=== PATIENT | male | born 1950 | race Caucasian/White ===

== ENCOUNTER 2016-11-14 08:45 | Inpatient (IN) | payer MEDICARE ==
--- OUTSIDE RECORDS SUMMARY | 2016-11-21 05:28 | XMS | Clinical Summary ---
:1950 Author Organization [facility] Address [address] [place] [address] Phone Care Team Providers Name Role Phone , Primary Care Provider Unavailable Allergies Not on File Current Medications Not on file Active Problems Not on file Social History Tobacco Use Types Packs/Day Years Used Date Never Assessed Sex Assigned at Date Recorded Not on file Last Filed Vital Signs Not on file Plan of Treatment Not on file Results Not on filefrom Last 3 Months
[2016-11-21] MEDS ORDERED: Vancomycin HCl 1.5 GM in Sodium Chloride 0.9% 250 ML 300 ML IVPB SCH (06:00)
[2016-11-21] MEDS ORDERED: Ondansetron HCl/PF 4 MG/2 ML Vial IVP PRN ×3 (06:57→10:31)
[2016-11-21] MEDS ORDERED: HYDROcodone/Acetaminophen 10/325 mg Tablet PO PRN ×3 (06:57→08:18)
[2016-11-21] MEDS ORDERED: COLCHICINE 0.6 MG PO PRN (06:57)
[2016-11-21] MEDS ORDERED: Fentanyl 100 MCG/2 ML VIAL SLOW IVP PRN (06:57)
[2016-11-21] MEDS ORDERED: Acetaminophen 325 MG TAB PO PRN (06:57)
[2016-11-21] MEDS ORDERED: diphenhydrAMINE HCl 25 MG CAP PO PRN (06:57)
[2016-11-21] MEDS ORDERED: Polyethylene Glycol 3350 17 GM Packet PO PRN (06:57)
[2016-11-21] MEDS ORDERED: traMADol HCl 50 MG TAB PO PRN ×2 (06:57→08:18)
[2016-11-21] MEDS ORDERED: Zolpidem Tartrate 5 MG TAB PO PRN ×2 (06:57→08:18)
[2016-11-21] MEDS ORDERED: Promethazine HCl 25 MG/ML VIAL IM PRN ×3 (06:57→10:31)
[2016-11-21] MEDS ORDERED: Midazolam HCl 2 mg/2 ml Vial ONE (07:11)
[2016-11-21] MEDS ORDERED: Colchicine 0.6 MG TAB PO PRN (07:44)
[2016-11-21] MEDS ORDERED: Bupivacaine HCl 0.5%/Epinephrine 1:200,000/PF 30 ml Vial ONE (08:07)
[2016-11-21] MEDS ORDERED: Ropivacaine 0.2% 550 ML 550 ML NERVE BLCK SCH (08:18)
[2016-11-21] MEDS ORDERED: Fentanyl 100 MCG/2 ML VIAL IV PRN (08:19)
[2016-11-21] MEDS ORDERED: Dexamethasone 20 MG/5 ML VIAL ONE (09:02)
[2016-11-21] MEDS ORDERED: Ondansetron HCl/PF 4 MG/2 ML Vial ONE (09:02)
[2016-11-21] MEDS ORDERED: Propofol 200 MG/20 ML VIAL ONE (09:02)
[2016-11-21] MEDS ORDERED: Sodium Chloride 0.9% 100 ML ONE (10:16)
[2016-11-21] MEDS ORDERED: Promethazine HCl 25 MG/ML VIAL SLOW IVP PRN (10:31)
[2016-11-21] MEDS ORDERED: Ketorolac Tromethamine 30 MG/ML VIAL ONE (10:38)
[2016-11-21] MEDS ORDERED: Fentanyl 100 MCG/2 ML VIAL ONE ×2 (10:38→11:02)
[2016-11-21] MEDS: Ferrous Gluconate 324 MG TAB PO SCH ×2 (11:11→20:38)
[2016-11-21] MEDS: Aspirin 325 MG TAB PO SCH ×2 (11:11→20:38)
[2016-11-21] MEDS: Multivitamin W/ Minerals 1 TAB PO SCH (11:11)
[2016-11-21] MEDS: Senokot S 8.6-50 MG TAB PO SCH ×2 (11:12→20:38)
--- NOTE | 2016-11-21 12:28 | RAD ---
TWO VIEWS OF THE LEFT KNEE: HISTORY: Left knee arthroplasty. COMPARISON: None. FINDINGS: Two views of the left knee show the patient to be status post left knee arthroplasty without perihar dware lucency or fracture. Air in the soft tissues is from recent surgery. IMPRESSION: Status post left knee arthroplasty without evidence of complication. POS: [facility]
--- NOTE | 2016-11-21 13:31 | OP ---
DATE OF PROCEDURE: 11/21/2016 PREOPERATIVE DIAGNOSIS: Degenerative joint disease, left knee. POSTOPERATIVE DIAGNOSIS: Degenerative joint disease, left knee. PROCEDURE: Left total knee arthroplasty using [place] [employer] 5 femur, 5 tibia, 9 mm CS X3 polyet hylene and A35 patella. NON PROFIT FINANCIAL CONTROLLER: Clive Purcell PA-C SURGEON: Enoch Skaggs M.D. PROCEDURE IN DETAIL: After informed consent was obtained in the preoperative holding area. The pat ient was taken to the operative suite where general anesthesia was induced. Once adequate level of general anesthesia was obtained, the patient was positioned and a well-padded tourniquet was placed around the left proximal thigh. The left lower extremity was then prepped and draped in the usual s terile fashion. Prior to exsanguination, a time out was called and all members of the surgical team agreed upon site, surgeon, and patient. The extremity was then exsanguinated and the tourniquet wa s raised. A midline longitudinal incision was then made directly over the patella extending two fin gerbreadths above the superior pole of the patella and two fingerbreadths inferior to the inferior p atellar pole of the patella. Deeper subcutaneous layers were dissected sharply and local bleeding w as controlled with Bovie electrocautery. A quad tendon longitudinal split was then made sharply and a median parapatellar arthrotomy was carried out both sharp and with Bovie electrocautery, carried down to one fingerbreadth medial to the tibial tubercle. The knee was then placed into flexion and the patella was everted nicely, and a copious fat pad ectomy was performed allowing for greater expo sure of the tibia. The computer-assisted distal femoral fiducial was then placed and pinned firmly, and the distal femoral cutting guide was pinned firmly into place. The oscillating saw was then us ed to remove the appropriate amount of bone. The 4-in-1 cutting block was then placed on the distal femur and the oscillating saw was used to remove the appropriate amount of bone off of the anterior , posterior, and chamfer cuts. After completion of bone cuts, the anterior cruciate ligament was re sected sharply and the posterior cruciate ligament retractor was placed and the tibia was subluxed f or better exposure. Partial meniscectomies were carried out, and the tibial computer-assisted fiduc ial was pinned, and the cutting guide was placed. Oscillating saw was then used to remove the bone with Hohmann retractors used to take care and protect the collateral ligaments. After the tibial re section was performed, a laminar block hacker was placed in between the freshened bone cuts. The knee p laced at 90 degrees and further bilateral meniscectomies were carried out, and the curved osteotome and curettage was used to remove any excess bone spurs in the posterior compartment. Exparel was th en injected into the posterior capsule, elizabeth-articular synovia, pre-patella synovia, and musculature surrounding the capsule. The trial femoral component, tibial baseplate were placed with the approp riate polyethylene trial insert with an appropriate polyethylene spacer and patellar button. The kn ee was taken through full range of motion with flexion and extension from 0-90 degrees and patellar broach squarely in the trochlea without any squinting or subluxation noted. The knee was also stabl e to varus and valgus stressing at 0, 15, 45, and 90 degrees of flexion. The drawer was negative. A ll trial components were then removed and the keel punch was used to provide the appropriate defect in the tibia with a mallet. The freshened bone cuts were copiously irrigated with pulsatile lavage of about 1-1/2 liters to remove all excess debris. The freshened bone cuts were then dried and with suction and lap sponge. The knee was placed in flexion and retractors were placed to provide acces s to all bone cuts. Tobramycin impregnated methyl methacrylate cement was then placed on the freshe ginna bone cuts and implants which were malleted firmly into place. Curettage and [place] elevators wer e used to remove any excess bone cement. The knee was placed into full extension and the patellar b utton was placed under compression, and the cement was allowed to cure. Once completed, the compone nts were again taken through full range of motion and copious irrigation of the knee was carried out with another liter of normal saline. All components were inspected fully with full range of motion and varus and valgus stressing. There was no laxity noted and full extension was observed clinicall y. Primary closure was accomplished with #2 interrupted Vicryl stitch of the arthrotomy defect. Th is was oversewn with a #2 running Quill barbed stitch. The gravitational platelet system was then i njected into the arthrotomy prior to closure. The subcutaneous layer was then closed with a running 0 barbed Monocryl stitch and skin closure accomplished with a running subcuticular 3-0 Monocryl bar bed Quill stitch and augmented with cement on the skin. Tourniquet was lowered. Good spontaneous r eturn of distal pulses was noted clinically and a sterile dressing was applied to the incision. The procedure was terminated without any complications. The patient was awakened in the operative suit e and the tourniquet was removed, and the patient was taken to the recovery room in stable condition . TOURNIQUET TIME: 49 minutes.
[2016-11-21] MEDS: BENAZEPRIL PO SCH (13:58)
[2016-11-21] MEDS: Furosemide 40 MG TAB PO SCH (13:58)
[2016-11-21] MEDS: AMLODIPINE BESYLATE PO SCH (13:58)
[2016-11-21] MEDS ORDERED: Ketorolac Tromethamine 30 MG/ML VIAL IM SCH (14:00)
--- NOTE | 2016-11-21 14:40 | PDOC.PN ---
- Subjective Encounter Start Date: 11/21/16 Encounter Start Time: 14:38 Pt seen for management of medical comorbidities, including hypertension. Denies chest pain, shortness of breath, fevers or chills. No nausea or vomiting. - Objective MAR Reviewed: Yes Vital Signs & Weight: Vital Signs (12 hours) Temp Pulse Resp BP Pulse Ox 11/21/16 11:35 97.3 F L 73 18 146/83 H 97 Weight Weight 217 lb Phys Exam - Physical Examination Constitutional: NAD HEENT: moist MMs, oral pharynx no lesions Neck: supple, full ROM Respiratory: no wheezing, no rales, no rhonchi, clear to auscultation bilateral Cardiovascular: RRR, no rub Gastrointestinal: soft, positive bowel sounds Musculoskeletal: pulses present s/p L knee surgery Neurological: moves all 4 limbs Psychiatric: normal affect Skin: no rash Dx/Plan (1) HTN (hypertension) Code(s): I10 - ESSENTIAL (PRIMARY) HYPERTENSION Status: Chronic (2) Dyslipidemia Code(s): E78.5 - HYPERLIPIDEMIA, UNSPECIFIED Status: Chronic (3) Gout Code(s): M10.9 - GOUT, UNSPECIFIED Status: Chronic (4) Leg swelling Code(s): M79.89 - OTHER SPECIFIED SOFT TISSUE DISORDERS Status: Chronic - Plan * .Continue statin. * Gout stable. Monitor vital signs and titrate antihypertensives as needed. s/p L TKA DVT prophylaxis and pain management per orthopedic surgery service. Code status: Full Review of Systems - Review of Systems Constitutional: negative: Fever, Chills, Sweats, Weakness, Malaise Respiratory: negative: Cough, Dry, Shortness of Breath, Hemoptysis, SOB with Excertion, Pleuritic Pain, Sputum, Wheezing Cardiovascular: negative: Chest Pain, Palpitations, Orthopnea, Paroxysmal Noc. Dyspnea, Edema, Light Headedness - Medications/Allergies Allergies/Adverse Reactions: Allergies Allergy/AdvReac Type Severity Reaction Status Date / Time tetanus immune globulin Allergy Verified 11/14/16 09:15 Medications: Current Medications Acetaminophen (Tylenol) 650 mg PO Q4H PRN PRN Reason: RICHARDS/ T > 101F; Mild Pain (1-3) Hydrocodone Bitart/Acetaminophen ([place] 10/325) 1 tab PO Q4H PRN PRN Reason: Pain (1-3) Hydrocodone Bitart/Acetaminophen ([place] 10/325) 2 tab PO Q4H PRN PRN Reason: PAIN (4-6) Allopurinol (Zyloprim) 300 mg PO QPM [facility] Amlodipine/Benazepril HCl (Lotrel 20) 1 cap PO DAILY [facility] Last Admin: 11/21/16 13:58 Dose: Not Given Aspirin (Aspirin) 325 mg PO BID [facility] Last Admin: 11/21/16 11:11 Dose: Not Given Cefazolin Sodium (Ancef) 2 gm SLOW IVP 0100,1700 [facility] Stop: 11/22/16 01:01 Colchicine (Colcrys) 0.6 mg PO DAILYPRN PRN PRN Reason: GOUT Diphenhydramine HCl (Benadryl) 25 mg PO Q6H PRN PRN Reason: Itching Fentanyl (Sublimaze) 50 mcg SLOW IVP Q30MIN PRN PRN Reason: Moderate Pain (4-6) Fentanyl (Sublimaze) 100 mcg SLOW IVP Q1H PRN PRN Reason: Severe Pain (7-10) Fentanyl (Sublimaze) 50 mcg IV Q1H PRN PRN Reason: BREAKTHROUGH PAIN Last Admin: 11/21/16 12:00 Dose: 50 mcg Ferrous Gluconate (Fergon) 324 mg PO BID [facility] Last Admin: 11/21/16 11:11 Dose: Not Given Furosemide (Lasix) 40 mg PO DAILY [facility] Last Admin: 11/21/16 13:58 Dose: Not Given Sodium Chloride (Normal Saline 0.9%) 1,000 mls @ 100 mls/hr IV .Q10H [facility] Ropivacaine (Ropivacaine 0.2% 550 Ml) 550 mls @ 0 mls/hr NERVE BLCK INF [facility] PRN Reason: As Directed Iron/Minerals/Multivitamins (Theragran M) 1 tab PO DAILY [facility] Last Admin: 11/21/16 11:11 Dose: Not Given Ketorolac Tromethamine (Toradol) 15 mg IVP Q6H PRN PRN Reason: Moderate Pain (4-6) Stop: 11/24/16 08:19 Multivitamins/Minerals (Ocuvite With Lutein) 1 tab PO [facility] Ondansetron HCl (Zofran) 4 mg IVP Q6H PRN PRN Reason: Nausea/Vomiting Polyethylene Glycol (Miralax) 17 gm PO DAILY PRN PRN Reason: Constipation Promethazine HCl (Phenergan) 12.5 mg IM Q4H PRN PRN Reason: Nausea Senna/Docusate Sodium (Senokot S) 2 tab PO BID [facility] Last Admin: 11/21/16 11:12 Dose: Not Given Simvastatin (Zocor) 10 mg PO HS [facility] Sodium Chloride (Flush - Normal Saline) 10 ml IVF PRN PRN PRN Reason: Saline Flush Tramadol HCl (Ultram) 50 mg PO Q6H PRN PRN Reason: Mild Pain (1-3) Tramadol HCl (Ultram) 100 mg PO Q6H PRN PRN Reason: Moderate Pain 4-6 Zolpidem Tartrate (Ambien) 5 mg PO HSPRN PRN PRN Reason: Insomnia
[2016-11-21] MEDS: Sodium Chloride 0.9% 1,000 ML IV SCH ×2 (15:58→16:57)
[2016-11-21] MEDS: Allopurinol 300 MG TAB PO SCH (20:37)
[2016-11-21] MEDS: Vit A,C & E/Lutein/Minerals Tablet PO SCH (20:38)
[2016-11-21] MEDS: Simvastatin 5 MG TAB PO SCH (20:38)
[2016-11-21] MEDS ORDERED: Pravastatin Sodium 20 MG TAB PO SCH (21:00)
[2016-11-21] MEDS ORDERED: Non-Formulary Item 1 EACH (Vit C/Vit E/Lutein/Min/Omega-3 [Ocuvite Softgel] 1 CAP) PO SCH (21:00)
[2016-11-22] MEDS: Sodium Chloride 0.9% 1,000 ML IV SCH ×3 (01:51→21:00)
[2016-11-22 06:00] LABS: Hematocrit 41.6 % (42.0-52.0); Mean Platelet Volume 8.3 fL (7.4-10.4); Red Blood Cell (RBC) Count 4.02 mill/uL (4.70-6.10); White Blood Cell (WBC) Count 26.5 thou/uL (4.8-10.8)
[2016-11-22] MEDS: HYDROcodone/Acetaminophen 10/325 mg Tablet PO PRN ×3 (08:12→18:22)
[2016-11-22] MEDS: Multivitamin W/ Minerals 1 TAB PO SCH (08:14)
[2016-11-22] MEDS: BENAZEPRIL PO SCH (08:14)
[2016-11-22] MEDS: Senokot S 8.6-50 MG TAB PO SCH ×2 (08:14→20:20)
[2016-11-22] MEDS: AMLODIPINE BESYLATE PO SCH (08:14)
[2016-11-22] MEDS: Aspirin 325 MG TAB PO SCH ×2 (08:14→20:20)
[2016-11-22] MEDS: Furosemide 40 MG TAB PO SCH (08:14)
[2016-11-22] MEDS: Ferrous Gluconate 324 MG TAB PO SCH ×2 (08:15→20:20)
[2016-11-22 10:28] VITALS: BMI 28.6
[2016-11-22] MEDS: Ketorolac Tromethamine 30 MG/ML VIAL IVP PRN (13:47)
--- NOTE | 2016-11-22 14:23 | PDOC.PN ---
- Subjective Encounter Start Date: 11/22/16 Encounter Start Time: 10:00 Pt seen for followup re: hypertension. Denies chest pain, shortness of breath, fevers, chills, cough, dysuria or increased frequency of urination. - Objective MAR Reviewed: Yes Vital Signs & Weight: Vital Signs (12 hours) Temp Pulse Resp BP Pulse Ox 11/22/16 11:30 97.5 F L 65 18 117/58 L 96 11/22/16 08:00 97.5 F L 65 18 96 11/22/16 07:36 97.7 F 61 18 136/77 96 Weight Admit Weight 217 lb Weight 217 lb I&O: 11/21/16 11/22/16 11/23/16 06:59 06:59 06:59 Intake Total 1880 Output Total 800 Balance 1080 Result Diagrams: 11/22/16 05:34 Phys Exam - Physical Examination Constitutional: NAD HEENT: moist MMs Neck: supple Respiratory: no wheezing, no rales, no rhonchi, clear to auscultation bilateral Cardiovascular: RRR, no rub Gastrointestinal: soft, positive bowel sounds Musculoskeletal: pulses present, edema present s/p L knee surgery Neurological: moves all 4 limbs Psychiatric: normal affect Dx/Plan (1) HTN (hypertension) Code(s): I10 - ESSENTIAL (PRIMARY) HYPERTENSION Status: Chronic (2) Dyslipidemia Code(s): E78.5 - HYPERLIPIDEMIA, UNSPECIFIED Status: Chronic (3) Gout Code(s): M10.9 - GOUT, UNSPECIFIED Status: Chronic (4) Leg swelling Code(s): M79.89 - OTHER SPECIFIED SOFT TISSUE DISORDERS Status: Chronic - Plan * . Leucocytosis, but no signs of infection. Recheck CBC. Continue to monitor. Titrate antihypertensives as needed. Continue statin. Continue furosemide for leg swelling. Review of Systems - Review of Systems Constitutional: negative: Fever, Chills, Sweats, Weakness, Malaise Respiratory: negative: Cough, Dry, Shortness of Breath, Hemoptysis, SOB with Excertion, Pleuritic Pain, Sputum, Wheezing Cardiovascular: negative: Chest Pain, Palpitations, Orthopnea, Paroxysmal Noc. Dyspnea, Edema, Light Headedness Genitourinary: negative: Dysuria, Frequency, Incontinence, Hematuria, Retention - Medications/Allergies Allergies/Adverse Reactions: Allergies Allergy/AdvReac Type Severity Reaction Status Date / Time tetanus immune globulin Allergy Verified 11/14/16 09:15 Medications: Current Medications Acetaminophen (Tylenol) 650 mg PO Q4H PRN PRN Reason: RICHARDS/ T > 101F; Mild Pain (1-3) Hydrocodone Bitart/Acetaminophen ([place] 10/325) 1 tab PO Q4H PRN PRN Reason: Pain (1-3) Hydrocodone Bitart/Acetaminophen ([place] 10/325) 2 tab PO Q4H PRN PRN Reason: PAIN (4-6) Last Admin: 11/22/16 13:37 Dose: 2 tab Allopurinol (Zyloprim) 300 mg PO QPM [facility] Last Admin: 11/21/16 20:37 Dose: 300 mg Amlodipine/Benazepril HCl (Lotrel 07/15) 1 cap PO DAILY [facility] Last Admin: 11/22/16 08:14 Dose: 1 cap Aspirin (Aspirin) 325 mg PO BID [facility] Last Admin: 11/22/16 08:14 Dose: 325 mg Colchicine (Colcrys) 0.6 mg PO DAILYPRN PRN PRN Reason: GOUT Diphenhydramine HCl (Benadryl) 25 mg PO Q6H PRN PRN Reason: Itching Fentanyl (Sublimaze) 50 mcg SLOW IVP Q30MIN PRN PRN Reason: Moderate Pain (4-6) Last Admin: 11/22/16 14:12 Dose: 50 mcg Fentanyl (Sublimaze) 100 mcg SLOW IVP Q1H PRN PRN Reason: Severe Pain (7-10) Fentanyl (Sublimaze) 50 mcg IV Q1H PRN PRN Reason: BREAKTHROUGH PAIN Last Admin: 11/21/16 12:00 Dose: 50 mcg Ferrous Gluconate (Fergon) 324 mg PO BID [facility] Last Admin: 11/22/16 08:15 Dose: 324 mg Furosemide (Lasix) 40 mg PO DAILY [facility] Last Admin: 11/22/16 08:14 Dose: 40 mg Sodium Chloride (Normal Saline 0.9%) 1,000 mls @ 100 mls/hr IV .Q10H [facility] Last Admin: 11/22/16 13:39 Dose: Not Given Ropivacaine (Ropivacaine 0.2% 550 Ml) 550 mls @ 0 mls/hr NERVE BLCK INF [facility] PRN Reason: As Directed Iron/Minerals/Multivitamins (Theragran M) 1 tab PO DAILY [facility] Last Admin: 11/22/16 08:14 Dose: 1 tab Ketorolac Tromethamine (Toradol) 15 mg IVP Q6H PRN PRN Reason: Moderate Pain (4-6) Stop: 11/24/16 08:19 Last Admin: 11/22/16 13:47 Dose: 15 mg Multivitamins/Minerals (Ocuvite With Lutein) 1 tab PO [facility] Last Admin: 11/21/16 20:38 Dose: 1 tab Ondansetron HCl (Zofran) 4 mg IVP Q6H PRN PRN Reason: Nausea/Vomiting Polyethylene Glycol (Miralax) 17 gm PO DAILY PRN PRN Reason: Constipation Promethazine HCl (Phenergan) 12.5 mg IM Q4H PRN PRN Reason: Nausea Senna/Docusate Sodium (Senokot S) 2 tab PO BID [facility] Last Admin: 11/22/16 08:14 Dose: 2 tab Simvastatin (Zocor) 10 mg PO [facility] Last Admin: 11/21/16 20:38 Dose: 10 mg Sodium Chloride (Flush - Normal Saline) 10 ml IVF PRN PRN PRN Reason: Saline Flush Last Admin: 11/22/16 14:13 Dose: 10 ml Tramadol HCl (Ultram) 50 mg PO Q6H PRN PRN Reason: Mild Pain (1-3) Tramadol HCl (Ultram) 100 mg PO Q6H PRN PRN Reason: Moderate Pain 4-6 Zolpidem Tartrate (Ambien) 5 mg PO HSPRN PRN PRN Reason: Insomnia
[2016-11-22] MEDS: Vit A,C & E/Lutein/Minerals Tablet PO SCH (20:20)
[2016-11-22] MEDS: Allopurinol 300 MG TAB PO SCH (20:20)
[2016-11-22] MEDS: Simvastatin 5 MG TAB PO SCH (20:20)
[2016-11-23] MEDS: HYDROcodone/Acetaminophen 10/325 mg Tablet PO PRN ×4 (00:16→13:52)
[2016-11-23] MEDS: Fentanyl 100 MCG/2 ML VIAL SLOW IVP PRN ×2 (00:21→02:25)
[2016-11-23] MEDS: traMADol HCl 50 MG TAB PO PRN ×2 (02:14→10:33)
[2016-11-23 05:29] LABS: Mean Platelet Volume 8.6 fL (7.4-10.4); White Blood Cell (WBC) Count 16.1 thou/uL (4.8-10.8)
[2016-11-23] MEDS: Senokot S 8.6-50 MG TAB PO SCH (08:02)
[2016-11-23] MEDS: AMLODIPINE BESYLATE PO SCH (08:02)
[2016-11-23] MEDS: BENAZEPRIL PO SCH (08:02)
[2016-11-23] MEDS: Ferrous Gluconate 324 MG TAB PO SCH (08:02)
[2016-11-23] MEDS: Furosemide 40 MG TAB PO SCH (08:02)
[2016-11-23] MEDS: Aspirin 325 MG TAB PO SCH (08:03)
[2016-11-23] MEDS: Multivitamin W/ Minerals 1 TAB PO SCH (08:03)
[2016-11-23] MEDS: Ketorolac Tromethamine 30 MG/ML VIAL IVP PRN (09:28)
[2016-11-23] MEDS: Sodium Chloride 0.9% 1,000 ML IV SCH (10:37)
[2016-11-23 12:00] VITALS: BP 119/73; TEMP 97.7
--- NOTE | 2016-11-23 13:18 | PDOC.PN ---
- Subjective Encounter Start Date: 11/23/16 Encounter Start Time: 08:40 Pt seen for followup re: hypertension. Says he feels better. No chest pain, shortness of breath, fevers. - Objective MAR Reviewed: Yes Vital Signs & Weight: Vital Signs (12 hours) Temp Pulse Resp BP Pulse Ox 11/23/16 11:05 97.7 F 57 L 18 119/73 97 11/23/16 07:50 97.6 F 57 L 18 137/81 97 Weight Admit Weight 217 lb Weight 217 lb I&O: 11/22/16 11/23/16 11/24/16 06:59 06:59 06:59 Intake Total 1880 2059 Output Total 800 Balance 1080 2059 Result Diagrams: 11/23/16 04:27 Phys Exam - Physical Examination Constitutional: NAD HEENT: moist MMs, oral pharynx no lesions Neck: supple Respiratory: clear to auscultation bilateral Cardiovascular: RRR, no rub Gastrointestinal: soft, positive bowel sounds s/p L knee surgery Neurological: moves all 4 limbs Psychiatric: normal affect Dx/Plan (1) HTN (hypertension) Code(s): I10 - ESSENTIAL (PRIMARY) HYPERTENSION Status: Chronic (2) Dyslipidemia Code(s): E78.5 - HYPERLIPIDEMIA, UNSPECIFIED Status: Chronic (3) Gout Code(s): M10.9 - GOUT, UNSPECIFIED Status: Chronic (4) Leg swelling Code(s): M79.89 - OTHER SPECIFIED SOFT TISSUE DISORDERS Status: Chronic - Plan * . Leucocytosis improved. No fever. Monitor vital signs, titrate antihypertensives as needed. Plan to discharge patient noted, will sign off. Review of Systems - Review of Systems Constitutional: negative: Fever, Chills, Sweats, Weakness, Malaise Respiratory: negative: Cough, Dry, Shortness of Breath, Hemoptysis, SOB with Excertion, Pleuritic Pain, Sputum, Wheezing Cardiovascular: negative: Chest Pain, Palpitations, Orthopnea, Paroxysmal Noc. Dyspnea, Edema, Light Headedness - Medications/Allergies Allergies/Adverse Reactions: Allergies Allergy/AdvReac Type Severity Reaction Status Date / Time tetanus immune globulin Allergy Verified 11/14/16 09:15 Medications: Current Medications Acetaminophen (Tylenol) 650 mg PO Q4H PRN PRN Reason: RICHARDS/ T > 101F; Mild Pain (1-3) Hydrocodone Bitart/Acetaminophen ([place] 10/325) 1 tab PO Q4H PRN PRN Reason: Pain (1-3) Hydrocodone Bitart/Acetaminophen ([place] 10/325) 2 tab PO Q4H PRN PRN Reason: PAIN (4-6) Last Admin: 11/23/16 08:00 Dose: 2 tab Allopurinol (Zyloprim) 300 mg PO QPM [facility] Last Admin: 11/22/16 20:20 Dose: 300 mg Amlodipine/Benazepril HCl (Lotrel 07/15) 1 cap PO DAILY [facility] Last Admin: 11/23/16 08:02 Dose: 1 cap Aspirin (Aspirin) 325 mg PO BID [facility] Last Admin: 11/23/16 08:03 Dose: 325 mg Colchicine (Colcrys) 0.6 mg PO DAILYPRN PRN PRN Reason: GOUT Diphenhydramine HCl (Benadryl) 25 mg PO Q6H PRN PRN Reason: Itching Fentanyl (Sublimaze) 50 mcg SLOW IVP Q30MIN PRN PRN Reason: Moderate Pain (4-6) Last Admin: 11/22/16 14:12 Dose: 50 mcg Fentanyl (Sublimaze) 100 mcg SLOW IVP Q1H PRN PRN Reason: Severe Pain (7-10) Last Admin: 11/23/16 02:25 Dose: 100 mcg Fentanyl (Sublimaze) 50 mcg IV Q1H PRN PRN Reason: BREAKTHROUGH PAIN Last Admin: 11/21/16 12:00 Dose: 50 mcg Ferrous Gluconate (Fergon) 324 mg PO BID [facility] Last Admin: 11/23/16 08:02 Dose: 324 mg Furosemide (Lasix) 40 mg PO DAILY [facility] Last Admin: 11/23/16 08:02 Dose: 40 mg Sodium Chloride (Normal Saline 0.9%) 1,000 mls @ 100 mls/hr IV .Q10H [facility] Last Admin: 11/23/16 10:37 Dose: Not Given Ropivacaine (Ropivacaine 0.2% 550 Ml) 550 mls @ 0 mls/hr NERVE BLCK INF [facility] PRN Reason: As Directed Iron/Minerals/Multivitamins (Theragran M) 1 tab PO DAILY [facility] Last Admin: 11/23/16 08:03 Dose: 1 tab Ketorolac Tromethamine (Toradol) 15 mg IVP Q6H PRN PRN Reason: Moderate Pain (4-6) Stop: 11/24/16 08:19 Last Admin: 11/23/16 09:28 Dose: 15 mg Multivitamins/Minerals (Ocuvite With Lutein) 1 tab PO HS [facility] Last Admin: 11/22/16 20:20 Dose: 1 tab Ondansetron HCl (Zofran) 4 mg IVP Q6H PRN PRN Reason: Nausea/Vomiting Polyethylene Glycol (Miralax) 17 gm PO DAILY PRN PRN Reason: Constipation Last Admin: 11/22/16 18:16 Dose: 17 gm Promethazine HCl (Phenergan) 12.5 mg IM Q4H PRN PRN Reason: Nausea Senna/Docusate Sodium (Senokot S) 2 tab PO BID [facility] Last Admin: 11/23/16 08:02 Dose: 2 tab Simvastatin (Zocor) 10 mg PO [facility] Last Admin: 11/22/16 20:20 Dose: 10 mg Sodium Chloride (Flush - Normal Saline) 10 ml IVF PRN PRN PRN Reason: Saline Flush Last Admin: 11/23/16 09:30 Dose: 10 ml Tramadol HCl (Ultram) 50 mg PO Q6H PRN PRN Reason: Mild Pain (1-3) Tramadol HCl (Ultram) 100 mg PO Q6H PRN PRN Reason: Moderate Pain 4-6 Last Admin: 11/23/16 10:33 Dose: 100 mg Zolpidem Tartrate (Ambien) 5 mg PO HSPRN PRN PRN Reason: Insomnia
== END 2016-11-23 15:44 | disposition home or self-care (01) | DRG 470 ==
LOC: SURG A 11-21 05:25 → SURG B 11-21 10:58
PROVIDERS: ADMIT Orthopaedic Surgery; ATTEND Orthopaedic Surgery
PROC: 0SRD0J9 Replacement of Left Knee Joint with Synthetic Substitute, Cemented, Open Approach (ICD-10-PCS; principal; 2016-11-21)
PROC: 8E0YXBZ Computer Assisted Procedure of Lower Extremity (ICD-10-PCS; 2016-11-21)
PROC: 3E0T3CZ (ICD-10-PCS; 2016-11-21)
DX: M17.12 Unilateral primary osteoarthritis, left knee (principal); I10 Essential (primary) hypertension; E78.5 Hyperlipidemia, unspecified; M1A.9XX0 Chronic gout, unspecified, without tophus (tophi); M79.89 Other specified soft tissue disorders; Z96.651 Presence of right artificial knee joint; H35.30 Unspecified macular degeneration
CPT/HCPCS: 36415; 85027; A4306; C1713; C1776; G8978-GP-CK; G8979-GP-CI; J0670; J1100; J1885; J2250; J2405; J2704; J2795; J3010; J3370; J7050

== ENCOUNTER 2017-03-23 07:20 | Day surgery (SDC) | payer MEDICARE ==
[2017-03-22 09:08] VITALS: BMI 29.9
[2017-03-23] MEDS ORDERED: Midazolam HCl 2 mg/2 ml Vial ONE ×2 (08:20→10:03)
[2017-03-23] MEDS ORDERED: Fentanyl 100 MCG/2 ML VIAL ONE ×2 (08:20→10:02)
[2017-03-23] MEDS ORDERED: Dexamethasone 4 mg/ml Vial ONE (08:21)
--- NOTE | 2017-03-23 13:12 | OP ---
DATE OF PROCEDURE: 03/23/2017 PROCEDURE: Manipulation under anesthesia. PREOPERATIVE DIAGNOSIS: Arthrofibrosis. POSTOPERATIVE DIAGNOSIS: Arthrofibrosis. SURGEON: Dr. Enoch Skaggs. PROCEDURE IN DETAIL: The patient was taken to the operating where general anesthesia was induced. I manipulated his knee. He started out about -20 to 85 degrees. After manipulation without pushing I get him to a -15 to 120 degrees, the knee was passively correctable to full extension with pressure. The patient then emerged from anesthesia. There were no complications.
[2017-03-23] MEDS ORDERED: Bupivacaine PF 0.5% 30 ML VIAL ONE (13:45)
[2017-03-23] MEDS ORDERED: Bupivacaine HCl 0.5%/Epinephrine 1:200,000/PF 30 ml Vial ONE (13:45)
[2017-03-23] MEDS ORDERED: FLU VACC TS2017-18 (>65YR) 0.5 ML SYRINGE IM ONE (21:00)
== END 2017-03-23 12:05 | disposition home or self-care (01) ==
LOC: SDC 07:20
PROVIDERS: ATTEND Orthopaedic Surgery
PROC: 0SSDXZZ Reposition Left Knee Joint, External Approach (ICD-10-PCS; principal; 2017-03-23)
DX: M24.662 Ankylosis, left knee (principal); I10 Essential (primary) hypertension; J30.2 Other seasonal allergic rhinitis; M19.90 Unspecified osteoarthritis, unspecified site; Z79.52 Long term (current) use of systemic steroids; Z79.899 Other long term (current) drug therapy; Z88.7 Allergy status to serum and vaccine; Z88.8 Allergy status to other drugs, medicaments and biological substances; Z98.41 Cataract extraction status, right eye; Z98.42 Cataract extraction status, left eye; Z96.1 Presence of intraocular lens; Z96.653 Presence of artificial knee joint, bilateral; Z98.890 Other specified postprocedural states
CPT/HCPCS: 27570; G0008; Q2036; 90471; 90682; J1100; J2250; J3010

== ENCOUNTER 2017-04-12 13:45 | Outpatient (CLI) | payer MEDICARE ==
--- NOTE | 2017-04-12 15:53 | MRI ---
MRI LEFT SHOULDER WITHOUT CONTRAST: 04/12/17 HISTORY: Fall. Pain. Limited range of motion. COMPARISON: None. FINDINGS: The exam is severely limited due to motion artifact. BICEPS TENDON: Moderate extra-articular biceps tendosynovitis. There is some flattening of the biceps tendon. GLENOID LABRUM: Abnormal fluid attenuation in the superior labrum, likely degenerative in nature. ROTATOR CUFF: Full thickness, full width tear supraspinatus and infraspinatus tendons retracted in the mid humeral head. There is mild fatty atrophy of the teres minor. BONES: No acute fracture is appreciated. There is small subchondral cysts of the intertubercular groove. There is a type III acromion with a keel osteophyte. IMPRESSION: 1. Full thickness, full width supraspinatus and infraspinatus tendon tears retracted to the mid humeral head. There is 20-30% atrophy of the supraspinatus and infraspinatus muscles. 2. Moderate fatty atrophy of the teres minor. This may be from prior quadrilateral space syndrom e. 3. Mild degenerative fluid signal within the superior labrum. POS: OFF
== END 2017-04-12 13:46 | disposition home or self-care (01) ==
LOC: SCSMRI 13:45
PROVIDERS: ATTEND Orthopaedic Surgery
DX: M25.512 Pain in left shoulder (principal); S46.812A Strain of other muscles, fascia and tendons at shoulder and upper arm level, left arm, initial encounter; M62.512 Muscle wasting and atrophy, not elsewhere classified, left shoulder; R93.8 Abnormal findings on diagnostic imaging of other specified body structures

== ENCOUNTER 2017-04-25 12:30 | Outpatient (CLI) | payer MEDICARE ==
[2017-04-25 13:16] LABS: Anion Gap 13 mmol/L (10-20); BUN (Urea Nitrogen) 13 mg/dL (8.4-25.7); Calc. Creatinine Clearance 0 mL/min (70-130); Calcium 9.1 mg/dL (7.8-10.44); Carbon Dioxide 29 mmol/L (23-31); Chloride 100 mmol/L (98-107); Estimated GFR-MDRD 57; Glucose 151 mg/dL (80-115); Potassium 3.8 mmol/L (3.5-5.1); Sodium 138 mmol/L (136-145)
== END 2017-04-25 12:31 | disposition home or self-care (01) ==
LOC: LABBT 12:30
PROVIDERS: ATTEND Orthopaedic Surgery
DX: Z01.812 Encounter for preprocedural laboratory examination (principal); M75.101 Unspecified rotator cuff tear or rupture of right shoulder, not specified as traumatic
CPT/HCPCS: 80048

== ENCOUNTER 2017-05-03 05:50 | Day surgery (SDC) | payer MEDICARE ==
[2017-04-25 12:56] VITALS: BMI 29.9
[2017-05-03] MEDS ORDERED: CEFAZOLIN/Water 2 GM/20 ML SYRINGE ONE (06:00)
[2017-05-03] MEDS ORDERED: Fentanyl 250 MCG/5 ML VIAL ONE ×2 (06:32→09:24)
[2017-05-03] MEDS ORDERED: Midazolam HCl 2 mg/2 ml Vial ONE (06:32)
[2017-05-03] MEDS ORDERED: HYDROcodone/Acetaminophen 10/325 mg Tablet PO PRN ×2 (06:55)
[2017-05-03] MEDS ORDERED: Ropivacaine 0.2% 550 ML 550 ML NERVE BLCK SCH (06:55)
[2017-05-03] MEDS ORDERED: Zolpidem Tartrate 5 MG TAB PO PRN (06:55)
[2017-05-03] MEDS ORDERED: Ondansetron HCl/PF 4 MG/2 ML Vial IVP PRN (06:55)
[2017-05-03] MEDS ORDERED: Promethazine HCl 25 MG/ML VIAL IM PRN (06:55)
[2017-05-03] MEDS ORDERED: traMADol HCl 50 MG TAB PO PRN ×2 (06:55)
[2017-05-03] MEDS ORDERED: Fentanyl 100 MCG/2 ML VIAL IV PRN (06:56)
[2017-05-03] MEDS ORDERED: Fentanyl 100 MCG/2 ML VIAL ONE (07:26)
--- NOTE | 2017-05-03 11:09 | OP ---
PREOPERATIVE DIAGNOSIS: Massive rotator cuff tear of left shoulder. POSTOPERATIVE DIAGNOSIS: Massive rotator cuff tear of left shoulder. SURGICAL PROCEDURE: Open acromioplasty and rotator cuff repair of the left shoulder. SURGEON: Enoch Skaggs M.D. GEOPHYSICAL E LOGGER: Leydi Hernandez PA-C BLOOD LOSS: Minimal. SPECIMENS: None. DRAINS: None. COMPLICATIONS: None. DESCRIPTION OF PROCEDURE: Patient was taken to beach chair position and received Ancef preoperativel y. Left arm was prepped and draped in the usual sterile fashion. I made an oblique incision with a standard deltoid splitting approach. Anterior acromioplasty was performed with an osteotome and infe rior acromioplasty was also performed performing a bursectomy. The entire rotator cuff superior to t he subscapularis was off. I freshened up the bone around the humeral head. I placed tag sutures in the cuff and mobilized the cuff. I then used four double loaded anchors to repair cuff down to bleed ing bone and then reinforced this with 3 double row self-punching Arthrex anchors. The shoulder was irrigated. Deltoid was repaired back to bone of #1 Ethibond. SubQ closed with 2-0 Vicryl, the skin was closed with ariela.
[2017-05-03] MEDS ORDERED: Ropivacaine 0.5% HCl/PF (150 MG/30 ML VIAL) ONE (15:10)
[2017-05-03] MEDS ORDERED: Ropivacaine 0.2% HCl/PF (40 MG/20 ML VIAL) ONE (15:10)
[2017-05-03] MEDS ORDERED: Propofol 200 MG/20 ML VIAL ONE (15:55)
[2017-05-03] MEDS ORDERED: Dexamethasone 20 MG/5 ML VIAL ONE (15:55)
[2017-05-03] MEDS ORDERED: Glycopyrrolate 0.2 MG/ML 5 ML SYRINGE ONE (15:55)
[2017-05-03] MEDS ORDERED: Ondansetron HCl/PF 4 MG/2 ML Vial ONE (15:55)
[2017-05-03] MEDS ORDERED: PHENYLEPHRINE-NS 100 MCG/ML 10 ML SYRINGE ONE (15:55)
[2017-05-03] MEDS ORDERED: ePHEDrine/0.9% NaCl/PF SYRINGE 50 mg/10 ml ONE (15:55)
[2017-05-03] MEDS ORDERED: Lidocaine 1% PF 5 ML VIAL ONE (15:55)
[2017-05-03] MEDS ORDERED: Ketorolac Tromethamine 30 MG/ML VIAL ONE (15:55)
== END 2017-05-03 12:15 | disposition home or self-care (01) ==
LOC: SDC 05:50
PROVIDERS: ATTEND Orthopaedic Surgery
PROC: 0LM20ZZ Reattachment of Left Shoulder Tendon, Open Approach (ICD-10-PCS; principal; 2017-05-03)
PROC: 0RNK0ZZ Release Left Shoulder Joint, Open Approach (ICD-10-PCS; 2017-05-03)
DX: M75.122 Complete rotator cuff tear or rupture of left shoulder, not specified as traumatic (principal); I10 Essential (primary) hypertension; M19.90 Unspecified osteoarthritis, unspecified site; J30.9 Allergic rhinitis, unspecified; Z79.899 Other long term (current) drug therapy; Z88.7 Allergy status to serum and vaccine; Z96.653 Presence of artificial knee joint, bilateral; W19.XXXA Unspecified fall, initial encounter
CPT/HCPCS: 23420; 96374; 97139; A4306; C1713; G8984; G8985; G8986; J1100; J1885; J2001; J2250; J2405; J2704; J2795; J3010